=== PATIENT | male | born 2000 | race Caucasian/White ===

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

== ENCOUNTER 2022-03-28 10:52 | Emergency (ER) | payer OTHER ==
[~2022-03-28] VITALS: Ht 182.9 cm; Wt 82.7 kg
[~2022-03-28 10:52] MED LIST: CEPHALEXIN500 MG PO
[2022-03-28] MEDS ORDERED: ONDANSETRON ODT8 MG PO (13:08)
== END 2022-03-28 13:25 | disposition home or self-care (01) ==
LOC: ED 10:52
DX: J10.1 Influenza due to other identified influenza virus with other respiratory manifestations (principal); Z20.822 Contact with and (suspected) exposure to COVID-19
CPT/HCPCS: 87502; 99284; A9270; U0003